=== PATIENT | male | born 1955 | race Caucasian/White ===

== ENCOUNTER 2018-12-19 13:38 | Emergency (ER) | payer MEDICARE, MEDICAID | END 2018-12-19 15:15 | disposition E | LOC: EDBD 13:38 → M ED 13:38 | DX: I46.9 Cardiac arrest, cause unspecified (principal); I10 Essential (primary) hypertension; E78.5 Hyperlipidemia, unspecified; F25.9 Schizoaffective disorder, unspecified; J44.9 Chronic obstructive pulmonary disease, unspecified; Z87.891 Personal history of nicotine dependence ==

== ENCOUNTER → 2018-12-20 | Outpatient (REF) | LOC: M LAB 12:47 | DX: Z02.79 Encounter for issue of other medical certificate (principal) ==